=== PATIENT | male | born 1980 | race Caucasian/White ===

== ENCOUNTER 2019-03-25 10:37 | Emergency (ER) | payer MEDICAID ==
[~2019-03-25] VITALS: Ht 175.3 cm; Wt 88.5 kg
[2019-03-25 10:39] VITALS: BP 121/74
--- NOTE | 2019-03-25 10:47 | NUR ---
PT AMBULATED TO ER BED 04
--- NOTE | 2019-03-25 10:50 | NUR ---
PT PRESENTS TO ED WITH C/O RIGHT HAND PAIN & SWELLING S/P HITTING THE WALL 3 DAYS AGO. +ROM; GOOD CAP REFILL. ERMD TO EVALUATE PT.
--- NOTE | 2019-03-25 10:56 | NUR ---
X RAY AT BEDSIDE
--- NOTE | 2019-03-25 11:43 | NUR ---
Patient resting comfortably in bed. Vital Signs within normal limits. Respirations even and unlabored.
[2019-03-25] MEDS ORDERED: CEPHALEXIN 500 MG CAP PO ONE (12:05)
--- NOTE | 2019-03-25 12:25 | NUR ---
Tdap IM ADMINISTERED ORDERED BY DR. IZAGUIRRE. 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
--- NOTE | 2019-03-25 12:26 | NUR ---
KEFLEX 500MG 1 CAP PO GIVEN ORDERED BY DR. IZAGUIRRE.
[2019-03-25] MEDS ORDERED: CEPHALEXIN 500 MG CAP ONE (12:36)
--- NOTE | 2019-03-25 12:40 | NUR ---
no adverse side effect from medication noted or voiced.
[2019-03-25 12:45] VITALS: BP 122/74
== END 2019-03-25 12:46 | disposition home or self-care (01) ==
LOC: MED 10:37
DX: L03.113 Cellulitis of right upper limb (principal)
CPT/HCPCS: 73130; 90715; 99283